=== PATIENT | male | born 1960 | race Caucasian/White ===

== ENCOUNTER 2017-05-12 16:14 | Observation (INO) | payer BC, OTHER ==
[2017-05-12] MEDS ORDERED: Albuterol/Ipratropium NEB.SOL* Albuterol 2.5 MG/Ipratropium 0.5 MG 3 ML INH ONE (17:18)
[2017-05-12] MEDS: NS 0.9% 1000 ML* 1,000 ML IV SCH (18:00)
--- NOTE | 2017-05-12 18:12 | RAD ---
INDICATION: Cough and fever. History of bronchitis/asthma. Multiple myeloma. COMPARISON: June 03, 2016 TECHNIQUE: Dual energy PA and routine lateral views of the chest were obtained. REPORT: Clear lungs and pleural spaces. Negative for pneumothorax. Tip of RIGHT chest port at level of RIGHT atrium. Mild cardiomegaly. Unremarkable central pulmonary vasculature. Mildly tortuous descending thoracic aorta. IMPRESSION: No evidence for pneumonia or other acute pulmonary or cardiac process..
[2017-05-12 18:13] LABS: Hematocrit 38 % (42-52); Hemoglobin 12.9 g/dl (14.0-18.0); Mean Corpuscular HGB Conc 34 g/dl (31-36); Mean Corpuscular Hemoglobin 31 pg (27-31); Mean Corpuscular Volume 90 fL (80-94); Mean Platelet Volume 8 um3 (7.4-10.4); Red Blood Count 4.17 10^6/ul (4.0-5.4); Red Cell Distribution Width 16 % (10.5-15); White Blood Count 8.5 10^3/ul (3.5-10.8)
[2017-05-12 18:25] LABS: Albumin 3.8 g/dL (3.2-5.2); BUN/Creatinine Ratio 15.2 (8-20); C Reactive Protein 67.22 mg/L (< 5.00); Calcium 9.4 mg/dL (8.6-10.3); EGFR Non-African American 124.4 (>60); Globulin 2.3 g/dL (2-4); Potassium 3.7 mmol/L (3.5-5.0); Total Protein 6.1 g/dL (6.4-8.9)
[2017-05-12] MEDS ORDERED: Azithromycin TAB* 250 MG PO ONE (20:13)
[2017-05-12] MEDS ORDERED: Albuterol 2.5 MG/3 ML NEB.SOL* (0.083%) INH ONE (21:45)
[2017-05-12] MEDS ORDERED: Meclizine TAB* 12.5 MG PO ONE (21:45)
[2017-05-12] MEDS ORDERED: Acetaminophen TAB* 325 MG PO ONE (22:35)
[2017-05-12] MEDS ORDERED: Levofloxacin 750 MG IVPREMIX(* 750 MG/150 ML BAG IVPB ONE (22:41)
[2017-05-12] MEDS ORDERED: NS 0.9% 1000 ML* 2,000 ML IV ONE (22:41)
--- NOTE | 2017-05-12 22:52 | ED ---
[place] Benjamin, scribed for Nikhil Ventura MD on 05/12/17 at 1721 . Shortness of Breath - HPI Summary HPI Summary: 56yo male c/o non-productive cough, SOB, and diffuse chest tightness since last evening. Pt thinks he has bronchitis. Pt has a CA pt undergoing chemo. Pts also states that pt gets frequent PNA. Pt also reports sore throat, some fever, and bloated stomach. Pt has swelling in his legs from his chemo therapy. Pt has a port inserted. - History of Current Complaint Chief Complaint: EDShortnessOfBreath Time Seen by Provider: 05/12/17 17:07 Hx Obtained From: Patient, Family/Bin Operator Onset/Duration: Sudden Onset, Lasting Days - 1 day, Still Present Timing: Constant Current Severity: Moderate Dyspnea At: Rest Aggrevating Factors: Nothing Alleviating Factors: Nothing Associated Signs & Symptoms: Cough (Nonproductive), Chest Pain w/Cough - chest tightness, Fever, Edema - legs Related History: Obesity - Allergy/Home Medications Allergies/Adverse Reactions: Allergies Allergy/AdvReac Type Severity Reaction Status Date / Time Penicillins Allergy Unknown Verified 01/15/16 13:13 Reaction Details enviromental Allergy Itching Uncoded 01/15/16 13:44 PMH/Surg Hx/FS Hx/Imm Hx Cardiovascular History: Reports: Hx Hypertension Respiratory History: Reports: Hx Asthma, Hx Sleep Apnea - Surgical History Surgery Procedure, Year, and Place: Cholecystectomy - Immunization History Date of Tetanus Vaccine: UTD Date of Influenza Vaccine: NO Infectious Disease History: No Infectious Disease History: Denies: Traveled Outside the [place] in Last 30 Days - Family History Known Family History: Positive: Cardiac Disease, Diabetes, Respiratory Disease - asthma, Other - CA - Social History Occupation: Unemployed Lives: With Family Alcohol Use: Occasionally Hx Substance Use: No Substance Use Type: Reports: None Hx Tobacco Use: Yes Smoking Status (MU): Former Smoker Review of Systems Positive: Fever Eyes: Negative ENT: Negative Positive: Chest Pain - chest tightness Positive: Shortness Of Breath, Cough Positive: Other - bloated stomach. Negative: Abdominal Pain, Vomiting, Diarrhea , Nausea Genitourinary: Negative Positive: Edema - legs Skin: Negative Neurological: Negative Psychological: Normal All Other Systems Reviewed And Are Negative: Yes Physical Exam Triage Information Reviewed: Yes Vital Signs On Initial Exam: Initial Vitals Temp Pulse Resp BP Pulse Ox 100.2 F 108 20 137/81 93 05/12/17 16:27 05/12/17 16:27 05/12/17 16:27 05/12/17 16:27 05/12/17 16:27 Vital Signs Reviewed: Yes Appearance: Positive: Well-Appearing, No Pain Distress, Obese Skin: Positive: Warm, Skin Color Reflects Adequate Perfusion, Dry Head/Face: Positive: Normal Head/Face Inspection Eyes: Positive: Normal, EOMI, RADHA ENT: Positive: Normal ENT inspection, Hearing grossly normal Neck: Positive: Supple, Nontender Respiratory/Lung Sounds: Positive: Rhonchi - scattered rhonchi Cardiovascular: Positive: RRR, Pulses are Symmetrical in both Upper and Lower Extremities, Leg Edema Left, Leg Edema Right Abdomen Description: Positive: Nontender, Soft Bowel Sounds: Positive: Present Musculoskeletal: Positive: Normal, Strength/ROM Intact, Edema Left - leg, Edema Right - leg Neurological: Positive: Sensory/Motor Intact, Alert, Oriented to Person Place, Time Psychiatric: Positive: Affect/Mood Appropriate - Harinder Coma Scale Coma Scale Total: 15 Diagnostics - Vital Signs Vital Signs Temp Pulse Resp BP Pulse Ox 05/12/17 16:27 100.2 F 108 20 137/81 93 - Laboratory Lab Results: Lab Results 05/12/17 05/12/17 05/12/17 Range/Units 17:50 17:50 17:50 WBC (3.5-10.8) 10^3/ul RBC (4.0-5.4) 10^6/ul Hgb (14.0-18.0) g/dl Hct (42-52) % MCV (80-94) fL MCH (27-31) pg MCHC (31-36) g/dl RDW (10.5-15) % Plt Count (150-450) 10^3/ul MPV (7.4-10.4) um3 Neut % (Auto) (38-83) % Lymph % (Auto) (25-47) % [place] % (Auto) (1-9) % Eos % (Auto) (0-6) % Baso % (Auto) (0-2) % Absolute Neuts (auto) (1.5-7.7) 10^3/ul Absolute Lymphs (auto) (1.0-4.8) 10^3/ul Absolute Monos (auto) (0-0.8) 10^3/ul Absolute Eos (auto) (0-0.6) 10^3/ul Absolute Basos (auto) (0-0.2) 10^3/ul Absolute Nucleated RBC 10^3/ul Nucleated RBC % INR (Anticoag Therapy) 1.52 H (0.89-1.11) APTT 34.0 (26.0-36.3) seconds Sodium 133 (133-145) mmol/L Potassium 3.7 (3.5-5.0) mmol/L Chloride 98 L (101-111) mmol/L Carbon Dioxide 26 (22-32) mmol/L Anion Gap 9 (2-11) mmol/L BUN 10 (6-24) mg/dL Creatinine 0.66 L (0.67-1.17) mg/dL Est GFR ( Amer) 160.0 (>60) Est GFR (Non-Af Amer) 124.4 (>60) BUN/Creatinine Ratio 15.2 (8-20) Glucose 143 H (70-100) mg/dL POC Glucose (mg/dL) (70-100) mg/dL Lactic Acid (0.5-2.0) mmol/L Calcium 9.4 (8.6-10.3) mg/dL Total Bilirubin 1.00 (0.2-1.0) mg/dL AST 20 (13-39) U/L ALT 34 (7-52) U/L Alkaline Phosphatase 50 (34-104) U/L Troponin I 0.00 (<0.04) ng/mL C-Reactive Protein 67.22 H (< 5.00) mg/L B-Natriuretic Peptide 43 ( - 100) pg/mL Total Protein 6.1 L (6.4-8.9) g/dL Albumin 3.8 (3.2-5.2) g/dL Globulin 2.3 (2-4) g/dL Albumin/Globulin Ratio 1.7 (1-3) Lipase 29 (11.0-82.0) U/L 05/12/17 05/12/17 05/12/17 Range/Units 17:50 17:50 21:43 WBC 8.5 (3.5-10.8) 10^3/ul RBC 4.17 (4.0-5.4) 10^6/ul Hgb 12.9 L (14.0-18.0) g/dl Hct 38 L (42-52) % MCV 90 (80-94) fL MCH 31 (27-31) pg MCHC 34 (31-36) g/dl RDW 16 H (10.5-15) % Plt Count 212 (150-450) 10^3/ul MPV 8 (7.4-10.4) um3 Neut % (Auto) 79.9 (38-83) % Lymph % (Auto) 5.2 L (25-47) % [place] % (Auto) 13.2 H (1-9) % Eos % (Auto) 0.7 (0-6) % Baso % (Auto) 1.0 (0-2) % Absolute Neuts (auto) 6.8 (1.5-7.7) 10^3/ul Absolute Lymphs (auto) 0.4 L (1.0-4.8) 10^3/ul Absolute Monos (auto) 1.1 H (0-0.8) 10^3/ul Absolute Eos (auto) 0.1 (0-0.6) 10^3/ul Absolute Basos (auto) 0.1 (0-0.2) 10^3/ul Absolute Nucleated RBC 0.01 10^3/ul Nucleated RBC % 0.1 INR (Anticoag Therapy) (0.89-1.11) APTT (26.0-36.3) seconds Sodium (133-145) mmol/L Potassium (3.5-5.0) mmol/L Chloride (101-111) mmol/L Carbon Dioxide (22-32) mmol/L Anion Gap (2-11) mmol/L BUN (6-24) mg/dL Creatinine (0.67-1.17) mg/dL Est GFR ( Amer) (>60) Est GFR (Non-Af Amer) (>60) BUN/Creatinine Ratio (8-20) Glucose (70-100) mg/dL POC Glucose (mg/dL) 130 H (70-100) mg/dL Lactic Acid 2.1 H* (0.5-2.0) mmol/L Calcium (8.6-10.3) mg/dL Total Bilirubin (0.2-1.0) mg/dL AST (13-39) U/L ALT (7-52) U/L Alkaline Phosphatase (34-104) U/L Troponin I (<0.04) ng/mL C-Reactive Protein (< 5.00) mg/L B-Natriuretic Peptide ( - 100) pg/mL Total Protein (6.4-8.9) g/dL Albumin (3.2-5.2) g/dL Globulin (2-4) g/dL Albumin/Globulin Ratio (1-3) Lipase (11.0-82.0) U/L Result Diagrams: 05/12/17 17:50 05/12/17 17:50 Lab Statement: Any lab studies that have been ordered have been reviewed, and results considered in the medical decision making process. - Radiology CXR Xray Interpretation: No Acute Changes Radiology Interpretation Completed By: Radiologist - ED physician has reviewed this radiology report and agrees. - EKG 1721 Cardiac Rate: Tachycardia - 109bpm EKG Rhythm: Sinus Tachycardia ST Segment: Normal Ectopy: None Re-Evaluation - Re-Evaluation First Eval Re-Evaluation Time: 20:55 Comment: Reviewed pts lab and imaging results with the pt. Course/Dx - Course Course Of Treatment: Reviewed pts medication and allergy lists. Blood pressure noted. NOT IMPROVED AFTER ALBUTEROL NEBS. ADMIT HOSPITALIST STABLE. NO CRITICAL CARE TIME. - Diagnoses Provider Diagnoses: Bronchitis, COPD (chronic obstructive pulmonary disease) Discharge - Discharge Plan Condition: Stable Disposition: ADMITTED TO [facility] Referrals: Non Staff,Doctor [Primary Care Provider] - The documentation as recorded by the [place] l[place] Benjamin accurately reflects the service I personally performed and the decisions made by me, Nikhil Ventura MD.
[2017-05-12] MEDS ORDERED: Warfarin TAB(*) 5 MG PO ONE (23:43)
[2017-05-12] MEDS ORDERED: NS 0.9% 1000 ML* 1,000 ML IV ONE (23:46)
[2017-05-12] MEDS ORDERED: Ondansetron INJ* 2 MG/ML VIAL IV PRN (23:47)
[2017-05-12] MEDS ORDERED: Acetaminophen TAB* 325 MG PO PRN (23:47)
[2017-05-12] MEDS ORDERED: Albuterol 2.5 MG/3 ML NEB.SOL* (0.083%) INH PRN (23:48)
[2017-05-12] MEDS ORDERED: Dextrose 50% Syringe 50 ML* 25 GM/50 ML SYRINGE IV PUSH PRN (23:49)
[2017-05-12] MEDS ORDERED: Iodixanol* (CONTRAST) 320 MG/ML 100 ML SDV IV ONE (23:50)
[2017-05-13] MEDS: NS 0.9% 1000 ML* 1,000 ML IV SCH (01:15)
--- NOTE | 2017-05-13 02:31 | HP ---
ADMISSION HISTORY AND PHYSICAL: DATE OF ADMISSION: 05/12/17 PRIMARY CARE PROVIDER: [facility]. HEALTHCARE PROXY: Steph, his . CODE STATUS: Full. SOURCE OF INFORMATION: History was obtained from interview with the patient and his . RELIABILITY: Fair. HISTORY OF PRESENT ILLNESS: This is a 56-year-old man with past medical history of SANCHEZ; asthma; diabetes; DVT, on anticoagulation; plasma cell multiple myeloma, treated with radiation and chemotherapy, currently on maintenance chemotherapy, had been in his usual state of health until 1 day prior to presentation, started to notice allergy-like symptoms associated with cough and congestion, as well as stuffy head. Today, the symptoms got worse and were associated with temperature maximum of 102.4 at home associated with rigors and chills. He took aspirin with some relief. He notes his cough was nonproductive and his was recently all with similar symptoms, although it is unclear if she had a fever. He had no vomiting; however, he is still nauseous, has had diarrhea, described as loose stools 3 times today. He has had a constant headache since yesterday as well as a chest tightness like a bubble in his chest that wants to pop. He feels short of breath that is now worse with ambulation. Seen in the emergency room, there was concern by the provider for bronchitis, however, failed to improve and hospitalist service was asked to consult for admission. PAST MEDICAL HISTORY: 1. Hypertension. 2. Obstructive sleep apnea, on CPAP. 3. Asthma. 4. Diabetes. 5. DVT, on anticoagulation. 6. Newly diagnosed plasma cell multiple myeloma with tumor in spine, status post radiation and chemotherapy. 7. Recurrent pneumonias. 8. Also had a cholecystectomy. MEDICATIONS: From the list the patient brought with him include: 1. Acyclovir 400 mg twice daily. 2. Albuterol 2 puffs every 4 hours as needed. 3. Atorvastatin 20 mg daily. 4. Atovaquone 10 mL every day with meal 1500 mg. 5. Cetirizine 10 mg daily. 6. Dexamethasone 4 mg 10 tablets by mouth once a week for 2 weeks, unclear when that start date. Initially, this was printed in February 2017. 7. Docusate 2 tabs daily for constipation. 8. Insulin sliding scale. 9. Loperamide as needed. 10. Metformin 500 mg twice daily. 11. Mometasone 220 mcg twice daily. 12. Pantoprazole 40 mg twice daily. 13. MiraLAX as needed. 14. Potassium chloride 10 mEq daily. 15. Prochlorperazine 10 mg as needed. 16. Simethicone 80 mg 4 times a day as needed. 17. Sodium fluoride 1.1% oral cream as needed. 18. Spironolactone 25 mg daily. 19. Cholecalciferol 2000 units daily. 20. Fish oil 1 cap daily. 21. Glucosamine 1 cap daily. 22. Multivitamin 1 tab daily. 23. Coumadin 2.5 daily and 5 mg on Saturdays. ALLERGIES: To PENICILLIN. FAMILY HISTORY: Leukemia, mother with pancreatic cancer, father with CAD. SOCIAL HISTORY: No tobacco, no alcohol. He is currently on disability. 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 REVIEW OF SYSTEMS: As per HPI, otherwise all other systems are negative. PHYSICAL EXAMINATION GENERAL: Sitting up in bed, interactive, pleasant, in no apparent distress. VITAL SIGNS: When seen by this author, blood pressure 108/78, heart rate was 120, respiratory rate is 16, T-max in the emergency room 100.2, O2 sat of 91% on room air. HEENT: His oropharynx is clear. He has moist mucous membranes. Sclerae are anicteric. NECK: He has nonelevated JVD. No cervical or supraclavicular lymphadenopathy. LUNGS: Clear anterior and posterior. HEART: He has a tachycardic heart rate that is regular without murmurs, rubs, or gallops. ABDOMEN: Soft, nontender, nondistended. He has a port in his right upper chest wall. EXTREMITIES: Warm and well perfused. He has 2+ bilateral pitting edema. NEUROLOGIC: He is alert and oriented x3. DIAGNOSTIC STUDIES/LAB DATA: Pertinent labs reviewed, notable for white blood cell count of 8.5, hemoglobin 12.9, platelets 212. INR is 1.52. Lactic acid 2.1. CRP 67. Data reviewed: Notable for chest x-ray, impression: No evidence for pneumonia or rather acute cardiac process. EKG: Sinus tachycardia, ventricular rate of 109, late R-wave progression, flattened T waves in aVF, inverted in III; notable for S in I, Q in III, as well as inverted Ts in III. ASSESSMENT AND PLAN: This is a 56-year-old man, currently undergoing immunotherapy for plasma cell multiple myeloma, additional history of deep venous thrombosis, on Coumadin, with an INR of 1.5, presenting with cough and shortness of breath. 1. Tachycardia. Concern for pulmonary embolism in the setting of cough, hypoxia, tachycardia, as well as EKG findings and subtherapeutic INR. We will send for CTA now. Continue Coumadin, we will bridge with Lovenox if evidence of pulmonary embolism on CTA. 2. Cough. In the absence of CTA findings, suggests bronchitis. We will continue azithromycin as it has been started in the emergency room. No additional steroids at this time. 3. Diabetes. Continue lispro sliding scale. 4. Obstructive sleep apnea. Continue CPAP. 5. Chronic obstructive pulmonary disease and asthma. Continue home medicine as well as albuterol p.r.n. 6. __HTN -___. Holding Aldactone. 7. DVT prophylaxis. Coumadin with decision for full-dose anticoagulation pending CTA. [id number]/[facility] #: [id number] DOE
[2017-05-13 05:27] LABS: Hematocrit 33 % (42-52); Hemoglobin 11.2 g/dl (14.0-18.0); Mean Corpuscular HGB Conc 34 g/dl (31-36); Mean Corpuscular Hemoglobin 31 pg (27-31); Mean Corpuscular Volume 91 fL (80-94); Mean Platelet Volume 9 um3 (7.4-10.4); Red Blood Count 3.61 10^6/ul (4.0-5.4); Red Cell Distribution Width 16 % (10.5-15)
[2017-05-13 05:37] LABS: BUN/Creatinine Ratio 12.1 (8-20); Calcium 8.6 mg/dL (8.6-10.3); EGFR Non-African American 124.4 (>60); Potassium 3.9 mmol/L (3.5-5.0)
[2017-05-13] MEDS: Insulin LISPRO* 1 UNITS UNIT SUBCUT SCH ×2 (07:44→12:20)
--- NOTE | 2017-05-13 07:59 | RAD ---
INDICATION: Hypoxia, tachycardia, cough evaluate for pulmonary COMPARISON: Comparison is made with a prior chest x-ray study from May 12, 2017. TECHNIQUE: A CT angiogram of the chest was performed with intravenous following intravenous injection of 100 ml of Visipaque 320 nonionic contrast. Contiguous axial sections were obtained from the lung apices through the lung bases. Images were reconstructed in the coronal and sagittal planes. FINDINGS: Examination of the pulmonary arteries is slightly limited due to suboptimal opacification of the arteries. No intraluminal filling defect or pulmonary embolism is seen. The heart is mildly enlarged. There is a trace pericardial effusion. The thoracic aorta is normal in caliber and demonstrates homogeneous contrast opacification. No significant enlarged mediastinal or hilar lymph nodes are seen. There is a small infiltrate present in the medial aspect of the right lower lobe. The lungs are otherwise clear. No pleural effusion is seen. Images of the upper abdomen demonstrate no evidence for acute finding. The liver is decreased in attenuation consistent with fatty infiltration. There is a subcutaneous nodule present in the right anterolateral chest wall measuring 1.8 x 1.2 cm in size. There are multiple lytic lesions present within the scapula, proximal humeri, sternum, dorsal vertebra and ribs. The largest lesion is located within the T5 vertebra and measures up to 1.5 cm in size. These would be consistent with the patient's history of multiple myeloma. The lesion at the T5 level appears to extend into the spinal canal and likely causes spinal cord compression. Recommend MRI evaluation for further evaluation. The results of this examination were discussed with Dr. Herrera. IMPRESSION: 1. SLIGHTLY LIMITED EXAM, NO EVIDENCE FOR PULMONARY EMBOLISM. 2. SMALL RIGHT LOWER LOBE INFILTRATE. 3. TRACE PERICARDIAL EFFUSION. 4. MULTIPLE OSSEOUS LYTIC LESIONS CONSISTENT WITH THE PATIENT'S HISTORY MULTIPLE MYELOMA. THERE IS A LESION AT THE T5 LEVEL WHICH LIKELY CAUSES SPINAL CORD COMPRESSION RECOMMEND MRI EVALUATION WITHOUT WITH CONTRAST. 5. SMALL NODULE IN THE SUBCUTANEOUS TISSUES OF THE RIGHT ANTERIOR CHEST WALL.
[2017-05-13] MEDS ORDERED: metFORMIN* 500 MG TAB PO SCH (08:00)
[2017-05-13] MEDS ORDERED: Enoxaparin(*) 150 MG/ML 1 ML SYRINGE SUBCUT SCH (08:00)
[2017-05-13] MEDS ORDERED: Mometasone 220 MCG MDI INH SCH (09:00)
[2017-05-13] MEDS ORDERED: Cetirizine* 10 MG TAB PO SCH (09:00)
[2017-05-13] MEDS ORDERED: Azithromycin TAB* 250 MG PO SCH (09:00)
[2017-05-13] MEDS ORDERED: Acyclovir* 400 MG TAB PO SCH (09:00)
[2017-05-13] MEDS ORDERED: Atovaquone* 750 MG/5 ML UDC PO SCH (09:00)
[2017-05-13] MEDS ORDERED: Omeprazole CAP* 20 MG PO SCH (09:00)
--- NOTE | 2017-05-13 09:51 | CONSULT ---
Consultation - Reason for Consultation Reason for Consultation: Multiple myeloma with T5 lesion Ordering Provider: April Zarate Chief Complaint: cough and fever History of Present Illness: 56 yo morbidly obese male with PMH of asthma, HTN, DM, "recurrent PNA" and multiple myeloma here with fevers and cough and found to have a T5 lesion with ? cord compression. Servando is a fairly decent historian (I have no records to review) and reports being diagnosed with multiple myeloma in July of 2016 during the work up of chest pain where he was found to have a large T5 lesion. He reports biopsy of this and a bone marrow biopsy with ultimate diagnosis of multiple myeloma. He was treated with steroids followed by RT x 10 doses to T5 , and then started on revlimid/velcade/dexamethasone, which he has been on since. This has been complicated by worsening neuropathy (it should be noted that he is on IV velcade and not subcutaneous, though I am not sure why). He reports that they recently changed him to maintenance dosing in hopes of moving forward with a bone marrow transplant, though he has not harvested yet. He presents now with a nonproductive cough and conjestion, with a temperature of 102.4. He also had diarrhea and a headache. His had something similar. He had a CTA in the ER for concern for PE (notably he has a history of a DVT diagnosed at presentation of his myeloma and is on coumadin but was subtherapeutic on admission). This revealed a small right lower lobe infiltrate , no embolism, and a T5 lytic lesion with concern for cord compression for which an MRI was recommended. He denies any back pain or increased weakness in his legs. Given these findings hematology was asked to consult. He is pending a MRI of his spine currently. He is currently on atovaquone for PCP prophylaxis and reports a rash to bactrim, though this is not currently listed as an allergy. Allergies/Medications Medication: Acetaminophen (Tylenol Tab*) 650 mg PO Q4H PRN PRN Reason: FEVER/PAIN Last Admin: 05/13/17 08:03 Dose: 650 mg Acyclovir (Zovirax Tab*) 400 mg PO Q12HR GINGER Last Admin: 05/13/17 07:53 Dose: 400 mg Albuterol (Ventolin 2.5 Mg/3 Ml Neb.Luisa*) 2.5 mg INH Q4H PRN PRN Reason: SOB/WHEEZING Atorvastatin Calcium (Lipitor*) 20 mg PO 2100 [facility] Atovaquone (Mepron*) 1,500 mg PO DAILY [facility] Azithromycin (Zithromax Tab*) 250 mg PO DAILY [facility] Stop: 05/16/17 09:01 Last Admin: 05/13/17 07:53 Dose: 250 mg Cetirizine HCl (Zyrtec*) 10 mg PO DAILY [facility] Last Admin: 05/13/17 07:53 Dose: 10 mg Dextrose (D50w Syringe 50 Ml*) 12.5 gm IV PUSH .FOR FS < 60 - SS PRN PRN Reason: FS < 60 Enoxaparin Sodium (Lovenox(*)) 130 mg SUBCUT Q12H [facility] Last Admin: 05/13/17 07:53 Dose: 130 mg Sodium Chloride (Ns 0.9% 1000 Ml*) 1,000 mls @ 150 mls/hr IV PER RATE [facility] Last Admin: 05/13/17 01:15 Dose: 150 mls/hr Insulin Human Lispro (Humalog*) 0 units SUBCUT ACHS [facility] PRN Reason: Protocol Last Admin: 05/13/17 07:44 Dose: Not Given Mometasone Furoate (Asmanex 220 Mcg Mdi *) 2 puff INH BID [facility] PRN Reason: Protocol Last Admin: 05/13/17 08:50 Dose: Not Given Omeprazole (Prilosec Cap*) 20 mg PO BID [facility] Last Admin: 05/13/17 07:53 Dose: 20 mg Ondansetron HCl (Zofran Inj*) 4 mg IV Q4H PRN PRN Reason: NAUSEA/VOMITING Pharmacy Profile Note (Coumadin Daily Reminder*) 1 note FOLLOW UP 1700 [facility] Warfarin Sodium (Coumadin Tab(*)) 2.5 mg PO DAILY@1700 [facility] PRN Reason: Protocol Allergies/Adverse Reactions: Allergies Allergy/AdvReac Type Severity Reaction Status Date / Time Penicillins Allergy Unknown Verified 01/15/16 13:13 Reaction Details enviromental Allergy Itching Uncoded 01/15/16 13:44 History - Past Medical History Other History: multiple myeloma. plasmacytoma. HTN. SANCHEZ on CPAP. diabetes. DVT. pneumonia. cholechystectomy. right upper chest wall port placement - Family History Hx Family Cancer: Yes - mom pancreatic cancer - Social History Hx Alcohol Use: No Hx Tobacco Use: No Review of Systems - Review of Systems Constitutional Symptoms: Positive: Fatigue Dermatology: Positive: Normal HEENT: Positive: Normal Eyes: Positive: Normal Thyroid: Positive: Normal Pulmonary: Positive: Cough, Shortness of Breath Cardiology: Positive: Normal Gastroenterology: Positive: Normal Genital - Urinary: Positive: Normal Musculoskeletal: Positive: Other - specifically denies back pain Endocrinology: Positive: Diabetes Mellitus Hematologic/Lymphatic: Positive: Anemia Neurology: Positive: Headache, Other - neuropathy Psychiatry: Positive: Normal Physical Exam - Physical Exam Physical Examination: Vital Signs Temp Pulse Resp BP Pulse Ox 97.8 F 85 20 128/76 94 05/13/17 03:53 05/13/17 03:53 05/13/17 03:53 05/13/17 03:53 05/13/17 03:53 morbidly obese male lying flat on his back in NAD perr eomi op moist CTA bl s1 s2 nl obese nt +Bs no le edema 5/5 strength throughout clean port RUChest wall no rashes Results - Lab Results Lab Results: 05/13/17 05/13/17 05/13/17 04:18 04:18 04:18 WBC 6.0 RBC 3.61 L Hgb 11.2 L Hct 33 L MCV 91 MCH 31 MCHC 34 RDW 16 H Plt Count 172 MPV 9 Neut % (Auto) 76.4 Lymph % (Auto) 6.0 L [place] % (Auto) 16.3 H Eos % (Auto) 0.8 Baso % (Auto) 0.5 Absolute Neuts (auto) 4.6 Absolute Lymphs (auto) 0.4 L Absolute Monos (auto) 1.0 H Absolute Eos (auto) 0.1 Absolute Basos (auto) 0 Absolute Nucleated RBC 0.01 Nucleated RBC % 0.1 INR (Anticoag Therapy) 1.35 H Sodium 137 Potassium 3.9 Chloride 104 Carbon Dioxide 25 Anion Gap 8 BUN 8 Creatinine 0.66 L Est GFR ( Amer) 160.0 Est GFR (Non-Af Amer) 124.4 BUN/Creatinine Ratio 12.1 Glucose 149 H POC Glucose (mg/dL) Calcium 8.6 Influenza A (Rapid) Influenza B (Rapid) 05/13/17 05/13/17 07:40 08:12 WBC RBC Hgb Hct MCV MCH MCHC RDW Plt Count MPV Neut % (Auto) Lymph % (Auto) [place] % (Auto) Eos % (Auto) Baso % (Auto) Absolute Neuts (auto) Absolute Lymphs (auto) Absolute Monos (auto) Absolute Eos (auto) Absolute Basos (auto) Absolute Nucleated RBC Nucleated RBC % INR (Anticoag Therapy) Sodium Potassium Chloride Carbon Dioxide Anion Gap BUN Creatinine Est GFR ( Amer) Est GFR (Non-Af Amer) BUN/Creatinine Ratio Glucose POC Glucose (mg/dL) 121 H Calcium Influenza A (Rapid) Negative Influenza B (Rapid) Negative Assessment and Plan Impression: 56 yo M w PMH of multiple myeloma currently on revlimid/velcade/dexamethasone with a known history of a T5 lesion sp radiation now presenting with cough and fever (most suggestive of a viral syndrome but appropriately being covered for bacterial etiologies) with a T5 lesion on CT scan. He has no clinical symptoms to suggest worsening of this lesion, but the report is certainly concerning for cord compression. I would recommend a contrast enhanced MRI of this area and comparison [facility] If there is concern for progression it would be reasonable to discuss with radiation oncology to see if he could have re-irradiation, vs. with neurosurgery for stabilization. He reports that he would NOT have this done here and would request [facility]. Thank you for this consultation. I have updated his medication allergy list.
--- NOTE | 2017-05-13 12:26 | RAD ---
INDICATION: Multiple myeloma T5 lytic lesion rule out cord compression. COMPARISON: Correlation is made with a prior CT angiogram of the chest from May 13, 2017. TECHNIQUE: Axial and sagittal T1 and T2-weighted images of the dorsal spine were obtained. FINDINGS: The vertebra are in normal alignment. No fracture is seen. There are a few scattered small subcentimeter T1 hypointense lesions present within the vertebra although much more prominent and better seen on the prior CT study. There is a focal larger lesion present within the T5 vertebra involving the posterior aspect of the vertebral body on the right side extending into the right pedicle, transverse process and lamina. There is no extension into the spinal canal and no spinal cord compression. The spinal cord is normal in shape and signal intensity. There is mild diffuse degenerative disc disease with changes most prominent at the T6-T7 level. At that level there is a small central disc protrusion which causes mild spinal canal narrowing. No significant areas of neural foraminal narrowing are seen. IMPRESSION: MULTIPLE OSSEOUS LESIONS WITHIN THE DORSAL SPINE CONSISTENT WITH THE PATIENT'S HISTORY MULTIPLE MYELOMA. THERE IS A DOMINANT LESION WITHIN THE T5 VERTEBRA WHICH APPEARS TO REMAIN CONFINED TO THE BONE WITHOUT EVIDENCE FOR EXTENSION INTO THE CANAL EXTENSION.
[2017-05-13 15:33] VITALS: BP 119/80
[2017-05-13] MEDS ORDERED: Warfarin TAB(*) 2.5 MG PO SCH (17:00)
[2017-05-13] MEDS ORDERED: Atorvastatin* 20 MG TAB PO SCH (21:00)
--- NOTE | 2017-05-14 04:09 | DS ---
CC: Dr. Tiny Caruso, [facility]; Dr. Star Navarrete, [facility]; Kylee Bowers, oncology nurse practitioner * DISCHARGE SUMMARY: DATE OF ADMISSION: 05/12/17 DATE OF DISCHARGE: 05/13/17 PRIMARY CARE PROVIDER: Dr. Tiny Caruso. ONCOLOGIST: Dr. Star Navarrete. DISCHARGE DIAGNOSES: 1. Bronchitis. 2. Known T5 metastatic disease. 3. Subtherapeutic INR. PAST MEDICAL HISTORY: 1. Hypertension. 2. Morbid obesity with a BMI of 43. 3. Obstructive sleep apnea, on CPAP. 4. Asthma. 5. Diabetes. 6. History of DVT, on anticoagulation. 7. Multiple myeloma with history of multiple lytic lesions and a T5 lesion causing spinal cord compression, diagnosed in July 2016, status post 11 radiation therapy sessions, currently on maintenance chemotherapy with bone marrow transplant planning. 8. History of recurrent pneumonias. 9. Status post cholecystectomy. MEDICATION LIST: 1. Acyclovir 400 mg p.o. b.i.d. 2. Albuterol HFA 2 puffs inhaled q.4 hours p.r.n. shortness of breath. 3. Aspirin 81 mg p.o. daily. 4. Atorvastatin 40 mg p.o. daily. 5. Atovaquone 1500 mg p.o. daily. 6. Cetirizine 10 mg p.o. daily. 7. Colace 200 mg p.o. at bedtime. 8. Regular insulin sliding scale as you were doing before. 9. Metformin 500 mg p.o. b.i.d. to be resumed on 05/15/17. 10. Dulera 200/5 two puffs inhaled daily. 11. Pantoprazole 40 mg p.o. b.i.d. 12. MiraLAX 17 g p.o. b.i.d. as needed for constipation. 13. Potassium chloride 10 mEq p.o. daily. 14. Prochlorperazine 10 mg p.o. q.6 hours p.r.n. nausea. 15. Simethicone 80 mg p.o. four times a day as needed for gas. 16. Spironolactone 25 mg p.o. daily. 17. Warfarin 2.5 mg p.o. daily. New medications: 1. Lovenox 130 mg subcutaneously q.12 hours until INR is greater than 2. 2. Guaifenesin 5 ml p.o. q.4 hours p.r.n. cough. 3. Levofloxacin 500 mg p.o. daily for 7 days. HOSPITAL COURSE: Mr. Martin is a 56-year-old male with a past medical history as stated above that presented to the emergency room with complaints of cough and congestion. His had similar symptoms. For more details about his presentation, I refer you to his history and physical. In the emergency room, the patient was found to have a subtherapeutic INR, so for that reason, he underwent a CTA of the chest that showed possible small right lower lobe infiltrate, trace pericardial effusion, multiple osteolytic lesions consistent with the patient's history of multiple myeloma. There is a lesion at the T5 level, which likely causes spinal cord compression. Recommend MRI evaluation with and without contrast. From a respiratory point of view, the impression was the patient likely had bronchitis. It was not clear if the infiltrates seen on the CAT scan represented pneumonia, but in any case, he will be treated with levofloxacin. The patient was found to have a subtherapeutic INR and he will be bridged with Lovenox until his INR is greater than 2. I am not changing his warfarin dose for now as he is being discharged home on levofloxacin and I believe his INR will trend up, but he will follow up with his hematology team in [place]. Regarding his T5 lesion, the patient has no complaints of weakness, urinary, or bowel incontinence. He has only tingling sensation on his toes and this is not new and most likely secondary to peripheral neuropathy. We obtained records from the [place] showing that his lesion initially measured 3.8 cm and it responded to radiation therapy. On this CT, the lesion measured 1.5 cm and his thoracic spine MRI with and without contrast showed multiple osseous lesions within the dorsal spine consistent with the patient's history of multiple myeloma. There is a dominant lesion within the T5 vertebrae, which appears to remain confined to the bone with no extension into the spinal canal and no spinal cord compression. I did call the [facility] and initially I talked to the oncologist chuck boner, Dr. Larry, and later on I received a phone call back from Ms. Bowers, oncology nurse practitioner. She is aware about the patient's presentation with bronchitis and his MRI report. I did give an MRI CD and report to the patient so he can take to his appointment tomorrow. He feels improved at this time and will prefer to continue his treatment at home. He has had only a low-grade temperature while in the hospital. His white cell count is normal as well as his platelets. Chemistries did not show significant abnormalities. The patient is medically stable for discharge today to have close followup with his oncology team in [place]. His chemotherapy infusion that was scheduled for tomorrow is canceled due to his infection now, but the tentative plan is for him to have the infusion next week. PHYSICAL EXAMINATION: Vital Signs: Temperature 97.8, heart rate is 87, respiratory rate is 16, oxygen saturation is 98% on room air, and blood pressure 119/80. General: The patient is a pleasant, middle-aged male, lying in bed, in no acute distress. CVS: Normal S1 and S2. Regular rate and rhythm. Chest: Breath sounds present bilaterally with no added sounds. Abdomen is obese, bowel sounds are present. Neuro: He is alert and oriented x3. Able to move all 4 extremities. DIET: Heart-healthy, consistent carb diet. ACTIVITY: As tolerated. DISPOSITION: To home. STATUS WHILE IN THE HOSPITAL: Observation. Please keep in mind this is a summarized version of this patient's hospital stay. If you need more information , please feel free to call me at [phone] or please obtain the full medical records. TIME SPENT: Approximately 45 minutes was spent to complete this discharge. [id number]/CPS #: [id number] DOE
== END 2017-05-13 16:32 | disposition home or self-care (01) ==
LOC: ED 16:14 → MEDTELE 23:46
PROVIDERS: ADMIT Internal Medicine; ATTEND Internal Medicine
DX: J40 Bronchitis, not specified as acute or chronic (principal); C90.00 Multiple myeloma not having achieved remission; C79.51 Secondary malignant neoplasm of bone; G95.29 Other cord compression; E11.9 Type 2 diabetes mellitus without complications; Z79.4 Long term (current) use of insulin; R06.02 Shortness of breath; I10 Essential (primary) hypertension; R00.0 Tachycardia, unspecified; Z79.01 Long term (current) use of anticoagulants; Z79.899 Other long term (current) drug therapy; E66.01 Morbid (severe) obesity due to excess calories; Z68.41 Body mass index [BMI] 40.0-44.9, adult; G47.33 Obstructive sleep apnea (adult) (pediatric); J45.909 Unspecified asthma, uncomplicated; Z86.718 Personal history of other venous thrombosis and embolism
CPT/HCPCS: 36415; 71020; 71275; 72146; 80048; 80053; 83605; 83690; 83880; 84484; 85025; 85610; 85730; 86140; 87040; 87502; 93005; 94640; 99284; A9270-GY; G0378; J1642; J1650; Q9967